=== PATIENT | female | born 1975 | race Caucasian/White ===

== ENCOUNTER → 2021-02-07 | Day surgery (SDC) | payer BC ==
[~2021-02-07] MED LIST: COLACE100 MG PO; DAILY VALUE1 EACH PO; GLUCOSAMINE-CH1 EA11 PO; IBUPROFEN800 MG PO; IRON PO; MAGNESIUM PO; PERCOCET 5/325 T1 EA PO; VITAMIN E PO
[2021-02-07 06:57] LABS: HEMOGLOBIN 12.8 gm/dl (12.3-15.3); RED BLOOD COUNT 4.3 M/UL (4.00-5.10); WHITE BLOOD COUNT 5.3 K/UL (4.5-11.0)
== END | disposition home or self-care (01) ==
LOC: OR 05:52
PROVIDERS: Obstetrics & Gynecology
DX: N84.0 Polyp of corpus uteri (principal); N93.9 Abnormal uterine and vaginal bleeding, unspecified; Z79.899 Other long term (current) drug therapy
CPT/HCPCS: 36415; 81001; 84702; 85025; 93005; J0690; J1100; J1885; J2250; J2405; J2704; J3010; J7030; J7120